=== PATIENT | female | born 2000 | race Caucasian/White ===

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

== ENCOUNTER → 2021-01-02 | Outpatient (CLI) | payer MEDICAID ==
[2021-01-02 15:05] LABS: HEMOGLOBIN 13.2 g/dl (12.0-15.5); MEAN CORPUSCULAR HEMOGLOBIN 31.1 pg (27.0-33.0); MEAN CORPUSCULAR VOLUME 94.1 fl (80.0-96.0); PLATELET COUNT, AUTOMATED 217 10^3/uL (150-450); RED BLOOD COUNT 4.25 10^6/uL (4.00-5.40); WHITE BLOOD COUNT 8.7 10^3/uL (4.0-10.0)
[2021-01-02 15:49] LABS: FREE T4 0.87 NG/DL (0.78-1.33); GLUCOSE CHALLENGE TEST 1 HOUR 157 MG/DL (LESS THAN 140)
[2021-01-02 16:15] LABS: HEPATITIS C VIRUS ABY INDEX < 0.0 INDEX (<0.8); HIV 1&2 SCREEN CENTAUR NEGATIVE (NEGATIVE)
[2021-01-02 18:33] LABS: HEMOGLOBIN A1c 5.6 %
[2021-01-02 18:47] LABS: GC DNA AMPLIFICATION NEGATIVE (NEGATIVE)
== END ==
LOC: M PLALAB 10:43
PROVIDERS: ATTEND Advanced Practice Midwife
DX: Z34.01 Encounter for supervision of normal first pregnancy, first trimester (principal); Z3A.00 Weeks of gestation of pregnancy not specified

== ENCOUNTER → 2021-02-14 | Outpatient (CLI) | payer MEDICAID | LOC: M LAB 06:55 | PROVIDERS: ATTEND Obstetrics & Gynecology | DX: O24.311 Unspecified pre-existing diabetes mellitus in pregnancy, first trimester (principal); Z3A.00 Weeks of gestation of pregnancy not specified; O99.810 Abnormal glucose complicating pregnancy ==

== ENCOUNTER → 2021-02-17 | Outpatient (CLI) | payer MEDICAID | LOC: M WHC 12:38 | PROVIDERS: ATTEND Obstetrics & Gynecology | DX: Z34.92 Encounter for supervision of normal pregnancy, unspecified, second trimester (principal) ==

== ENCOUNTER → 2021-10-23 | Outpatient (CLI) | payer MEDICAID ==
[2021-10-23 19:29] LABS: ALT/SGPT 20 U/L (12-78); BILIRUBIN,TOTAL 0.6 MG/DL (0.2-1.0); BLOOD UREA NITROGEN 10 MG/DL (7-18); CALCIUM LEVEL 9.3 MG/DL (8.5-10.1); CARBON DIOXIDE LEVEL 27 MEQ/L (21-32); CHLORIDE LEVEL 105 MEQ/L (98-107); CHOLESTEROL LEVEL 171 MG/DL (<200); GLUCOSE, FASTING 91 MG/DL (70-100); POTASSIUM SERUM 4.3 MEQ/L (3.5-5.1); SODIUM LEVEL 134 MEQ/L (136-145); TRIGLYCERIDES LEVEL 64 MG/DL (<150)
[2021-10-23 19:30] LABS: ALBUMIN 3.7 GM/DL (3.2-5.2); HDL CHOLESTEROL 45 MG/DL (>40); LDL CHOLESTEROL 113 MG/DL (<100); NON-HDL-C 126 MG/DL; TOTAL 25(OH) VITAMIN D 42.6 NG/ML (30.0-100.0); TOTAL PROTEIN 7.4 GM/DL (6.4-8.2)
== END ==
LOC: M LAB 16:53
PROVIDERS: ATTEND Nurse Practitioner Family
DX: E06.3 Autoimmune thyroiditis (principal); Z13.228 Encounter for screening for other metabolic disorders

== ENCOUNTER 2022-02-24 19:11 | Emergency (ER) | payer MEDICAID ==
[~2022-02-24] VITALS: Ht 160 cm; Wt 79.3 kg
[2022-02-24] MEDS ORDERED: OSELTAMIVIR PHOSPHATE 75 MG CAP (TAMIFLU) PO ONE (20:55)
[2022-02-24] MEDS ORDERED: ONDANSETRON 4MG 2ML VIAL IV ONE (20:55)
[2022-02-24] MEDS ORDERED: NS 1,000 ML IV ONE (20:55)
[2022-02-24] MEDS ORDERED: guaiFENesin ER 600 MG TAB PO SCH (21:00)
[2022-02-24 21:11] LABS: BASO % 0.2 % (0.0-1.0); EOS % 0.2 % (0.0-3.0); HEMATOCRIT 35.3 % (36.0-47.0); HEMOGLOBIN 11.8 g/dl (12.0-15.5); LYMPH # 0.6 10^3/uL (1.5-5.0); LYMPH % 7.1 % (24.0-44.0); MEAN CORPUSCULAR HEMOGLOBIN 31.2 pg (27.0-33.0); MEAN CORPUSCULAR HGB CONC 33.4 g/dl (32.0-36.5); MEAN CORPUSCULAR VOLUME 93.4 fl (80.0-96.0); MONO # 0.6 10^3/uL (0.0-0.8); MONO % 6.6 % (2.0-8.0); NEUTROPHILS # 7.3 10^3/uL (1.5-8.5); NEUTROPHILS % 84.4 % (36.0-66.0); PLATELET COUNT, AUTOMATED 210 10^3/uL (150-450); RED BLOOD COUNT 3.78 10^6/uL (4.00-5.40); WHITE BLOOD COUNT 8.7 10^3/uL (4.0-10.0)
[2022-02-24 21:37] LABS: BLOOD UREA NITROGEN < 5 MG/DL (9-23); CALCIUM LEVEL 8.9 MG/DL (8.5-10.1); CARBON DIOXIDE LEVEL 22 MMOL/L (20-31); CHLORIDE LEVEL 103 MMOL/L (98-107); CREATININE FOR GFR 0.49 MG/DL (0.55-1.30); GLUCOSE, FASTING 89 MG/DL (60-100); POTASSIUM SERUM 3.7 MMOL/L (3.5-5.1); SODIUM LEVEL 136 MMOL/L (136-145)
[2022-02-24] MEDS ORDERED: ONDA4TAB6 PO (22:44)
[2022-02-24] MEDS ORDERED: MUCI1TAB16 PO (22:44)
[2022-02-24] MEDS ORDERED: OSEL75CA PO (22:44)
[2022-02-24 22:54] VITALS: BP 104/72
== END 2022-02-24 22:57 | disposition home or self-care (01) ==
LOC: M ED 19:11
DX: J09.X2 Influenza due to identified novel influenza A virus with other respiratory manifestations (principal); Z79.899 Other long term (current) drug therapy
CPT/HCPCS: 80048; 85025; 87428; 96361; 96374; 99284; J2405

== ENCOUNTER → 2022-03-20 | Outpatient (CLI) | payer MEDICAID ==
[~2022-03-20] MED LIST changes: +MUCI1TAB16 PO; +OSEL75CA PO
== END ==
LOC: M RAD 11:45
PROVIDERS: ATTEND Obstetrics & Gynecology Obstetrics
DX: Z34.02 Encounter for supervision of normal first pregnancy, second trimester (principal)

== ENCOUNTER → 2022-06-11 | Outpatient (CLI) | payer MEDICAID ==
[2022-06-11 12:24] LABS: APPEARANCE, URINE HAZY (CLEAR); BACTERIA, URINE AUTO NEGATIVE (NEGATIVE); BILIRUBIN, URINE AUTO NEGATIVE (NEGATIVE); BLOOD, URINE BLOOD NEGATIVE (NEGATIVE); COLOR, URINE YELLOW (YELLOW); GLUCOSE, URINE (UA) AUTO 3+ mg/dL (NEGATIVE); KETONE, URINE AUTO NEGATIVE (NEGATIVE); LEUKOCYTE ESTERASE, URINE AUTO 1+ (NEGATIVE); MUCUS, URINE SMALL (NEGATIVE); NITRITE, URINE AUTO NEGATIVE (NEGATIVE); PROTEIN, URINE AUTO 1+ mg/dL (NEGATIVE); RBC, URINE AUTO 1 /HPF (0-3); SPECIFIC GRAVITY URINE AUTO 1.024 (1.002-1.035); SQUAMOUS EPITHELIAL CELL UR AU 13 /HPF (0-6); UROBILINOGEN, URINE AUTO 0.2 mg/dL (0.0-2.0); WBC, URINE AUTO 11 /HPF (0-3)
[2022-06-11 12:28] LABS: HEMATOCRIT 30.2 % (36.0-47.0); HEMOGLOBIN 9.8 g/dl (12.0-15.5); MEAN CORPUSCULAR HGB CONC 32.5 g/dl (32.0-36.5); MEAN CORPUSCULAR VOLUME 95.6 fl (80.0-96.0); PLATELET COUNT, AUTOMATED 252 10^3/uL (150-450); RED BLOOD COUNT 3.16 10^6/uL (4.00-5.40); WHITE BLOOD COUNT 10.5 10^3/uL (4.0-10.0)
[2022-06-11 12:47] LABS: GLUCOSE CHALLENGE TEST 1 HOUR 151 MG/DL (LESS THAN 140)
[2022-06-11 12:49] LABS: FREE T4 0.81 NG/DL (0.83-1.43)
[2022-06-11 14:00] LABS: HEMOGLOBIN A1c 5.6 % (4.0-6.0)
[2022-06-11 14:43] LABS: THYROID STIMULATING HORMONE 3.085 uIU/ML (0.48-4.17)
[2022-06-11 19:13] LABS: HEPATITIS B SURFACE ANTIGEN NEGATIVE (NEGATIVE)
[2022-06-11 19:37] LABS: HIV 1&2 SCREEN CENTAUR NEGATIVE (NEGATIVE)
[2022-06-12 16:08] LABS: HSV TYPE I IgG SPECIFIC <0.91 index (0.00-0.90); HSV TYPE II IgG SPECIFIC 6.84 index (0.00-0.90)
== END ==
LOC: M LAB 09:17
PROVIDERS: ATTEND Obstetrics & Gynecology Obstetrics
DX: Z34.03 Encounter for supervision of normal first pregnancy, third trimester (principal)

== ENCOUNTER 2022-07-22 13:05 | Emergency (ER) | payer MEDICAID ==
[~2022-07-22] VITALS: Ht 160 cm; Wt 87.8 kg
[2022-07-22 13:06] VITALS: BP 119/70
[2022-07-22] MEDS ORDERED: LEVO75TA4 (13:16)
[2022-07-22] MEDS ORDERED: FOLI1TAB11 (13:16)
[2022-07-22] MEDS ORDERED: FERR325T19 (13:16)
[2022-07-22] MEDS ORDERED: ZOLO100T (13:16)
[2022-07-22] MEDS ORDERED: ONDANSETRON 4MG 2ML VIAL IV ONE (13:50)
[2022-07-22] MEDS ORDERED: ACETAMINOPHEN TAB 650MG DOSE (2X325MG) PO ONE (13:50)
[2022-07-22] MEDS ORDERED: NS 1,000 ML IV ONE (13:50)
[2022-07-22 14:31] LABS: BASO # 0.1 10^3/uL (0.0-0.2); BASO % 0.5 % (0.0-1.0); EOS % 0.3 % (0.0-3.0); LYMPH # 1.6 10^3/uL (1.5-5.0); LYMPH % 14.6 % (24.0-44.0); MEAN CORPUSCULAR HEMOGLOBIN 28.6 pg (27.0-33.0); MEAN CORPUSCULAR HGB CONC 32.3 g/dl (32.0-36.5); MEAN CORPUSCULAR VOLUME 88.6 fl (80.0-96.0); MONO # 0.6 10^3/uL (0.0-0.8); MONO % 5.6 % (2.0-8.0); NEUTROPHILS # 8.4 10^3/uL (1.5-8.5); NEUTROPHILS % 76.6 % (36.0-66.0); PLATELET COUNT, AUTOMATED 306 10^3/uL (150-450)
[2022-07-22 14:59] LABS: BLOOD UREA NITROGEN 5 MG/DL (9-23); CARBON DIOXIDE LEVEL 24 MMOL/L (20-31); CHLORIDE LEVEL 106 MMOL/L (98-107); CREATININE FOR GFR 0.57 MG/DL (0.55-1.30); GLUCOSE, FASTING 84 MG/DL (60-100); POTASSIUM SERUM 4.2 MMOL/L (3.5-5.1); SODIUM LEVEL 136 MMOL/L (136-145)
[2022-07-22] MEDS ORDERED: ONDA4TAB6 PO (16:03)
== END 2022-07-22 16:12 | disposition home or self-care (01) ==
LOC: M ED 13:05
DX: O99.013 Anemia complicating pregnancy, third trimester (principal); O98.513 Other viral diseases complicating pregnancy, third trimester; B34.8 Other viral infections of unspecified site; Z3A.39 39 weeks gestation of pregnancy; Z79.83 Long term (current) use of bisphosphonates; Z79.899 Other long term (current) drug therapy
CPT/HCPCS: 80048; 85025; 87486; 87581; 87633; 87798; 87880; 96361; 96374; 99284; J2405

== ENCOUNTER → 2023-07-16 | Outpatient (CLI) | payer MEDICAID ==
[~2023-07-16] MED LIST changes: +FERR325T19; +FOLI1TAB11; +LEVO75TA4; +ZOLO100T
== END ==
LOC: M WHC 07:41
PROVIDERS: ATTEND Physician Assistant
DX: N63.24 Unspecified lump in the left breast, lower inner quadrant (principal)